=== PATIENT | male | born 1960 | race Caucasian/White ===

== ENCOUNTER 2022-11-13 14:42 | Inpatient (IN) | payer OTHER ==
[2022-11-13 15:10] VITALS: BMI 27.6
[2022-11-13] MEDS ORDERED: POLYETHYLENE GLYCOL (HEALTHYLAX) 3350 17 GM PACKET PO PRN (17:09)
[2022-11-13] MEDS ORDERED: IBUPROFEN 400 MG TABLET (FP) PO PRN (17:09)
[2022-11-13] MEDS ORDERED: IBUPROFEN 600 MG TABLET (FP) PO PRN (17:09)
[2022-11-13] MEDS ORDERED: NALOXONE HCL (KLOXXADO) 8 MG SPRAY NS PRN (17:09)
[2022-11-13] MEDS ORDERED: NICOTINE 10 MG CARTRIDGE (INHALER) IH PRN (17:09)
[2022-11-13] MEDS ORDERED: ACETAMINOPHEN 325 MG TABLET (FP) PO PRN (17:09)
[2022-11-13] MEDS ORDERED: MAG HYDROX/AL HYDROX/SIMETH 30 ML UNIT-DOSE CUP PO PRN (17:09)
[2022-11-13] MEDS ORDERED: BENZOCAINE/MENTHOL (CHLORASEPTIC ) LOZENGE MM PRN (17:09)
[2022-11-13] MEDS ORDERED: ONDANSETRON *ODT* 4 MG TABLET SL PRN (17:09)
[2022-11-13] MEDS ORDERED: MAGNESIUM HYDROX 2400MG/30ML ORAL SUSPENSION 30 ML CUP PO PRN (17:09)
[2022-11-13] MEDS ORDERED: BISMUTH SUBSALICYLATE 524 MG/30 ML PO PRN (17:09)
[2022-11-13] MEDS ORDERED: LOPERAMIDE HCL 2 MG CAPSULE PO PRN (17:09)
[2022-11-13] MEDS ORDERED: DICYCLOMINE HCL 10 MG CAPSULE PO PRN (17:09)
[2022-11-13] MEDS: PRENATAL VITAMINS W/ FOLIC ACID TABLET (FP) PO SCH (18:07)
[2022-11-13] MEDS: NICOTINE 14 MG/24 HOURS TOPICAL PATCH TD SCH (18:07)
[2022-11-13] MEDS ORDERED: PATIENT'S OWN MEDICATION (NON-FORMULARY) (Simvastatin [Zocor] 20 MG Tablet) PO SCH (22:00)
[2022-11-13] MEDS: ATORVASTATIN CA 10 MG TABLET (FP) PO SCH (22:27)
[2022-11-13] MEDS: DIVALPROEX SODIUM 250 MG TABLET E.C. PO SCH (22:27)
[2022-11-13] MEDS: MELATONIN 5 MG TABLETS PO SCH (22:27)
[2022-11-13] MEDS: THIAMINE HCL 100 MG TABLET (FP) PO SCH (22:28)
[2022-11-14] MEDS: DIVALPROEX SODIUM 250 MG TABLET E.C. PO SCH ×3 (06:01→22:05)
[2022-11-14] MEDS ORDERED: DEXTROAMPHETAMINE/AMPHETAMINE 10 MG CAP.ER.24H PO ONE (10:00)
[2022-11-14] MEDS ORDERED: cloNIDine HCL 0.1 MG TABLET PO PRN (10:16)
[2022-11-14] MEDS: PRENATAL VITAMINS W/ FOLIC ACID TABLET (FP) PO SCH (10:28)
[2022-11-14] MEDS: METHOCARBAMOL 500 MG TABLET PO PRN ×2 (10:29→22:06)
[2022-11-14] MEDS: hydrOXYzine PAMOATE 25 MG CAPSULE (FP) PO PRN ×2 (10:29→22:06)
[2022-11-14] MEDS ORDERED: methaDONE HCL 10 MG TABLET (FOR DETOX USE ONLY) PO ONE (10:30)
[2022-11-14] MEDS: NICOTINE 14 MG/24 HOURS TOPICAL PATCH TD SCH (10:30)
[2022-11-14 11:03] LABS: CALCIUM 8.9 mg/dL (8.5-10.1)
[2022-11-14 11:04] LABS: BLOOD UREA NITROGEN 7.7 mg/dL (7-18)
[2022-11-14 11:06] LABS: CREATININE 0.6 mg/dL (0.55-1.3)
[2022-11-14 11:08] LABS: BILIRUBIN,TOTAL 0.4 mg/dL (0.2-1); HEMATOCRIT 33.8 % (35.4-49); MCH 28.2 pg (25.7-33.7); MCHC 32.5 g/dl (32.0-35.9); MEAN CELL VOLUME 86.7 fl (80-96); MEAN PLT VOLUME 7.6 fl (7.5-11.1); PLATELET COUNT 254 10^3/uL (134-434); RDW 16.9 % (11.9-15.9); TOT PROT 6.5 g/dl (6.4-8.2); WHITE BLOOD COUNT 6.3 K/mm3 (4.0-10.0)
[2022-11-14] MEDS: ATORVASTATIN CA 10 MG TABLET (FP) PO SCH (22:06)
[2022-11-14] MEDS: THIAMINE HCL 100 MG TABLET (FP) PO SCH (22:06)
[2022-11-14] MEDS: MELATONIN 5 MG TABLETS PO SCH (22:06)
[2022-11-15] MEDS: DIVALPROEX SODIUM 250 MG TABLET E.C. PO SCH ×3 (05:24→22:17)
[2022-11-15] MEDS: METHOCARBAMOL 500 MG TABLET PO PRN (10:11)
[2022-11-15] MEDS: hydrOXYzine PAMOATE 25 MG CAPSULE (FP) PO PRN (10:11)
[2022-11-15] MEDS: NICOTINE 14 MG/24 HOURS TOPICAL PATCH TD SCH (10:12)
[2022-11-15] MEDS: PRENATAL VITAMINS W/ FOLIC ACID TABLET (FP) PO SCH (10:13)
[2022-11-15] MEDS: ATORVASTATIN CA 10 MG TABLET (FP) PO SCH (22:17)
[2022-11-15] MEDS: THIAMINE HCL 100 MG TABLET (FP) PO SCH (22:17)
[2022-11-15] MEDS: MELATONIN 5 MG TABLETS PO SCH (22:17)
[2022-11-16] MEDS: hydrOXYzine PAMOATE 25 MG CAPSULE (FP) PO PRN (05:32)
[2022-11-16] MEDS: METHOCARBAMOL 500 MG TABLET PO PRN (05:33)
[2022-11-16] MEDS: DIVALPROEX SODIUM 250 MG TABLET E.C. PO SCH ×3 (05:34→22:02)
[2022-11-16] MEDS ORDERED: methaDONE HCL 10 MG TABLET (FOR DETOX USE ONLY) PO ONE (10:00)
[2022-11-16] MEDS: NICOTINE 14 MG/24 HOURS TOPICAL PATCH TD SCH (10:12)
[2022-11-16] MEDS: PRENATAL VITAMINS W/ FOLIC ACID TABLET (FP) PO SCH (10:14)
[2022-11-16] MEDS: ATORVASTATIN CA 10 MG TABLET (FP) PO SCH (22:02)
[2022-11-16] MEDS: MELATONIN 5 MG TABLETS PO SCH (22:02)
[2022-11-16] MEDS: THIAMINE HCL 100 MG TABLET (FP) PO SCH (22:02)
[2022-11-17] MEDS: ACETAMINOPHEN 325 MG TABLET (FP) PO PRN ×2 (05:28→22:19)
[2022-11-17] MEDS: DIVALPROEX SODIUM 250 MG TABLET E.C. PO SCH ×3 (05:28→22:20)
[2022-11-17] MEDS: METHOCARBAMOL 500 MG TABLET PO PRN (10:01)
[2022-11-17] MEDS: NICOTINE 14 MG/24 HOURS TOPICAL PATCH TD SCH (10:02)
[2022-11-17] MEDS: PRENATAL VITAMINS W/ FOLIC ACID TABLET (FP) PO SCH (10:02)
[2022-11-17] MEDS: ATORVASTATIN CA 10 MG TABLET (FP) PO SCH (22:19)
[2022-11-17] MEDS: THIAMINE HCL 100 MG TABLET (FP) PO SCH (22:20)
[2022-11-17] MEDS: MELATONIN 5 MG TABLETS PO SCH (22:22)
[2022-11-18] MEDS: DIVALPROEX SODIUM 250 MG TABLET E.C. PO SCH ×3 (05:16→22:17)
[2022-11-18] MEDS ORDERED: methaDONE HCL 10 MG TABLET (FOR DETOX USE ONLY) PO ONE (10:00)
[2022-11-18] MEDS: PRENATAL VITAMINS W/ FOLIC ACID TABLET (FP) PO SCH (10:13)
[2022-11-18] MEDS: NICOTINE 14 MG/24 HOURS TOPICAL PATCH TD SCH (10:17)
[2022-11-18] MEDS: SERTRALINE HCL 50 MG TABLET (FP) PO SCH (11:57)
[2022-11-18] MEDS: DEXTROAMPHETAMINE/AMPHETAMINE 10 MG CAP.ER.24H PO SCH (15:32)
[2022-11-18] MEDS: MELATONIN 5 MG TABLETS PO SCH (22:17)
[2022-11-18] MEDS: ATORVASTATIN CA 10 MG TABLET (FP) PO SCH (22:17)
[2022-11-18] MEDS: THIAMINE HCL 100 MG TABLET (FP) PO SCH (22:17)
[2022-11-18] MEDS: METHOCARBAMOL 500 MG TABLET PO PRN (22:18)
[2022-11-18] MEDS: ACETAMINOPHEN 325 MG TABLET (FP) PO PRN (22:18)
[2022-11-19] MEDS: DIVALPROEX SODIUM 250 MG TABLET E.C. PO SCH ×3 (05:29→21:23)
[2022-11-19] MEDS: PRENATAL VITAMINS W/ FOLIC ACID TABLET (FP) PO SCH (09:52)
[2022-11-19] MEDS: SERTRALINE HCL 50 MG TABLET (FP) PO SCH (09:52)
[2022-11-19] MEDS: NICOTINE 14 MG/24 HOURS TOPICAL PATCH TD SCH (09:52)
[2022-11-19] MEDS: DEXTROAMPHETAMINE/AMPHETAMINE 10 MG CAP.ER.24H PO SCH (09:52)
[2022-11-19] MEDS: METHOCARBAMOL 500 MG TABLET PO PRN (09:53)
[2022-11-19] MEDS ORDERED: DEXTROAMPHETAMINE/AMPHETAMINE 10 MG CAP.ER.24H PO SCH (14:00)
[2022-11-19] MEDS ORDERED: TUBERCULIN PPD 5 TU/0.1ML VIAL ID ONE (19:56)
[2022-11-19] MEDS: ATORVASTATIN CA 10 MG TABLET (FP) PO SCH (21:23)
[2022-11-19] MEDS: THIAMINE HCL 100 MG TABLET (FP) PO SCH (21:24)
[2022-11-19] MEDS: MELATONIN 5 MG TABLETS PO SCH (21:24)
[2022-11-19] MEDS: ACETAMINOPHEN 325 MG TABLET (FP) PO PRN (21:24)
[2022-11-20] MEDS: hydrOXYzine PAMOATE 25 MG CAPSULE (FP) PO PRN (06:28)
[2022-11-20] MEDS: DIVALPROEX SODIUM 250 MG TABLET E.C. PO SCH ×3 (06:28→21:21)
[2022-11-20] MEDS: PRENATAL VITAMINS W/ FOLIC ACID TABLET (FP) PO SCH (09:55)
[2022-11-20] MEDS: SERTRALINE HCL 50 MG TABLET (FP) PO SCH (09:56)
[2022-11-20] MEDS: NICOTINE 14 MG/24 HOURS TOPICAL PATCH TD SCH (09:56)
[2022-11-20] MEDS: DEXTROAMPHETAMINE/AMPHETAMINE 10 MG CAP.ER.24H PO SCH (09:56)
[2022-11-20 11:39] LABS: HIV INTERPRETATION NEGATIVE (NEGATIVE)
[2022-11-20] MEDS ORDERED: PNEUMOC 20-VAL CONJ-DIP CRM/PF 0.5 ML SYRINGE IM ONE (12:00)
[2022-11-20] MEDS ORDERED: DEXTROAMPHETAMINE/AMPHETAMINE 10 MG CAP.ER.24H PO SCH (13:29)
[2022-11-20] MEDS: THIAMINE HCL 100 MG TABLET (FP) PO SCH (21:21)
[2022-11-20] MEDS: MELATONIN 5 MG TABLETS PO SCH (21:21)
[2022-11-20] MEDS: ATORVASTATIN CA 10 MG TABLET (FP) PO SCH (21:21)
[2022-11-20] MEDS: ACETAMINOPHEN 325 MG TABLET (FP) PO PRN (21:23)
[2022-11-21] MEDS ORDERED: DEXTROAMPHETAMINE/AMPHETAMINE 10 MG CAP.ER.24H PO SCH (06:00)
[2022-11-21] MEDS: DEXTROAMPHETAMINE/AMPHETAMINE 10 MG CAP.ER.24H PO SCH (06:25)
[2022-11-21] MEDS: DIVALPROEX SODIUM 250 MG TABLET E.C. PO SCH ×3 (06:25→21:09)
[2022-11-21] MEDS: SERTRALINE HCL 50 MG TABLET (FP) PO SCH (09:53)
[2022-11-21] MEDS: PRENATAL VITAMINS W/ FOLIC ACID TABLET (FP) PO SCH (09:53)
[2022-11-21] MEDS: NICOTINE 14 MG/24 HOURS TOPICAL PATCH TD SCH (09:54)
[2022-11-21] MEDS: ACETAMINOPHEN 325 MG TABLET (FP) PO PRN (14:30)
[2022-11-21] MEDS: ATORVASTATIN CA 10 MG TABLET (FP) PO SCH (21:09)
[2022-11-21] MEDS: THIAMINE HCL 100 MG TABLET (FP) PO SCH (21:09)
[2022-11-21] MEDS: MELATONIN 5 MG TABLETS PO SCH (21:09)
[2022-11-22] MEDS: DIVALPROEX SODIUM 250 MG TABLET E.C. PO SCH ×3 (06:14→21:16)
[2022-11-22] MEDS: DEXTROAMPHETAMINE/AMPHETAMINE 10 MG CAP.ER.24H PO SCH (06:14)
[2022-11-22] MEDS: NICOTINE 14 MG/24 HOURS TOPICAL PATCH TD SCH (09:56)
[2022-11-22] MEDS: PRENATAL VITAMINS W/ FOLIC ACID TABLET (FP) PO SCH (09:56)
[2022-11-22] MEDS: ACETAMINOPHEN 325 MG TABLET (FP) PO PRN (09:57)
[2022-11-22] MEDS: SERTRALINE HCL 50 MG TABLET (FP) PO SCH (09:57)
[2022-11-22] MEDS: MELATONIN 5 MG TABLETS PO SCH (21:16)
[2022-11-22] MEDS: THIAMINE HCL 100 MG TABLET (FP) PO SCH (21:16)
[2022-11-22] MEDS: ATORVASTATIN CA 10 MG TABLET (FP) PO SCH (21:17)
[2022-11-22] MEDS: hydrOXYzine PAMOATE 25 MG CAPSULE (FP) PO PRN (21:17)
[2022-11-23] MEDS: DIVALPROEX SODIUM 250 MG TABLET E.C. PO SCH ×3 (06:52→21:27)
[2022-11-23] MEDS: DEXTROAMPHETAMINE/AMPHETAMINE 10 MG CAP.ER.24H PO SCH (06:52)
[2022-11-23] MEDS: SERTRALINE HCL 50 MG TABLET (FP) PO SCH (09:36)
[2022-11-23] MEDS: PRENATAL VITAMINS W/ FOLIC ACID TABLET (FP) PO SCH (09:36)
[2022-11-23] MEDS: ACETAMINOPHEN 325 MG TABLET (FP) PO PRN (09:37)
[2022-11-23] MEDS: NICOTINE 14 MG/24 HOURS TOPICAL PATCH TD SCH (09:37)
[2022-11-23] MEDS: ATORVASTATIN CA 10 MG TABLET (FP) PO SCH (21:27)
[2022-11-23] MEDS: THIAMINE HCL 100 MG TABLET (FP) PO SCH (21:27)
[2022-11-23] MEDS: MELATONIN 5 MG TABLETS PO SCH (21:28)
[2022-11-24] MEDS: DEXTROAMPHETAMINE/AMPHETAMINE 10 MG CAP.ER.24H PO SCH (06:11)
[2022-11-24] MEDS: DIVALPROEX SODIUM 250 MG TABLET E.C. PO SCH ×3 (06:12→21:07)
[2022-11-24] MEDS: NICOTINE 14 MG/24 HOURS TOPICAL PATCH TD SCH (09:40)
[2022-11-24] MEDS: SERTRALINE HCL 50 MG TABLET (FP) PO SCH (09:40)
[2022-11-24] MEDS: PRENATAL VITAMINS W/ FOLIC ACID TABLET (FP) PO SCH (09:40)
[2022-11-24] MEDS: ATORVASTATIN CA 10 MG TABLET (FP) PO SCH (21:07)
[2022-11-24] MEDS: MELATONIN 5 MG TABLETS PO SCH (21:07)
[2022-11-24] MEDS: hydrOXYzine PAMOATE 25 MG CAPSULE (FP) PO PRN (21:08)
[2022-11-24] MEDS: THIAMINE HCL 100 MG TABLET (FP) PO SCH (21:08)
[2022-11-25] MEDS: DEXTROAMPHETAMINE/AMPHETAMINE 10 MG CAP.ER.24H PO SCH (06:07)
[2022-11-25] MEDS: DIVALPROEX SODIUM 250 MG TABLET E.C. PO SCH ×3 (06:07→21:08)
[2022-11-25] MEDS: NICOTINE 14 MG/24 HOURS TOPICAL PATCH TD SCH (09:36)
[2022-11-25] MEDS: PRENATAL VITAMINS W/ FOLIC ACID TABLET (FP) PO SCH (09:36)
[2022-11-25] MEDS: SERTRALINE HCL 50 MG TABLET (FP) PO SCH (09:36)
[2022-11-25] MEDS: ATORVASTATIN CA 10 MG TABLET (FP) PO SCH (21:07)
[2022-11-25] MEDS: MELATONIN 5 MG TABLETS PO SCH (21:07)
[2022-11-25] MEDS: THIAMINE HCL 100 MG TABLET (FP) PO SCH (21:07)
[2022-11-26] MEDS: DIVALPROEX SODIUM 250 MG TABLET E.C. PO SCH ×3 (05:39→21:06)
[2022-11-26] MEDS: DEXTROAMPHETAMINE/AMPHETAMINE 10 MG CAP.ER.24H PO SCH (05:39)
[2022-11-26] MEDS: PRENATAL VITAMINS W/ FOLIC ACID TABLET (FP) PO SCH (09:40)
[2022-11-26] MEDS: NICOTINE 14 MG/24 HOURS TOPICAL PATCH TD SCH (09:40)
[2022-11-26] MEDS: SERTRALINE HCL 50 MG TABLET (FP) PO SCH (09:41)
[2022-11-26] MEDS: ACETAMINOPHEN 325 MG TABLET (FP) PO PRN (09:41)
[2022-11-26] MEDS: MELATONIN 5 MG TABLETS PO SCH (21:05)
[2022-11-26] MEDS: THIAMINE HCL 100 MG TABLET (FP) PO SCH (21:06)
[2022-11-26] MEDS: ATORVASTATIN CA 10 MG TABLET (FP) PO SCH (21:06)
[2022-11-27] MEDS: DEXTROAMPHETAMINE/AMPHETAMINE 10 MG CAP.ER.24H PO SCH (06:06)
[2022-11-27] MEDS: DIVALPROEX SODIUM 250 MG TABLET E.C. PO SCH ×3 (06:06→21:07)
[2022-11-27] MEDS: NICOTINE 14 MG/24 HOURS TOPICAL PATCH TD SCH (09:41)
[2022-11-27] MEDS: PRENATAL VITAMINS W/ FOLIC ACID TABLET (FP) PO SCH (09:41)
[2022-11-27] MEDS: SERTRALINE HCL 50 MG TABLET (FP) PO SCH (09:42)
[2022-11-27] MEDS: ACETAMINOPHEN 325 MG TABLET (FP) PO PRN (13:54)
[2022-11-27] MEDS: THIAMINE HCL 100 MG TABLET (FP) PO SCH (21:07)
[2022-11-27] MEDS: MELATONIN 5 MG TABLETS PO SCH (21:07)
[2022-11-27] MEDS: ATORVASTATIN CA 10 MG TABLET (FP) PO SCH (21:07)
[2022-11-28] MEDS: DIVALPROEX SODIUM 250 MG TABLET E.C. PO SCH ×3 (06:16→21:14)
[2022-11-28] MEDS: DEXTROAMPHETAMINE/AMPHETAMINE 10 MG CAP.ER.24H PO SCH (06:17)
[2022-11-28] MEDS: NICOTINE 14 MG/24 HOURS TOPICAL PATCH TD SCH (09:36)
[2022-11-28] MEDS: PRENATAL VITAMINS W/ FOLIC ACID TABLET (FP) PO SCH (09:36)
[2022-11-28] MEDS: ACETAMINOPHEN 325 MG TABLET (FP) PO PRN (09:37)
[2022-11-28] MEDS: SERTRALINE HCL 50 MG TABLET (FP) PO SCH (09:37)
[2022-11-28] MEDS: ATORVASTATIN CA 10 MG TABLET (FP) PO SCH (21:14)
[2022-11-28] MEDS: MELATONIN 5 MG TABLETS PO SCH (21:14)
[2022-11-28] MEDS: THIAMINE HCL 100 MG TABLET (FP) PO SCH (21:15)
[2022-11-29] MEDS: DIVALPROEX SODIUM 250 MG TABLET E.C. PO SCH ×3 (06:32→21:17)
[2022-11-29] MEDS: DEXTROAMPHETAMINE/AMPHETAMINE 10 MG CAP.ER.24H PO SCH (06:32)
[2022-11-29] MEDS: PRENATAL VITAMINS W/ FOLIC ACID TABLET (FP) PO SCH (09:39)
[2022-11-29] MEDS: NICOTINE 14 MG/24 HOURS TOPICAL PATCH TD SCH (09:39)
[2022-11-29] MEDS: SERTRALINE HCL 50 MG TABLET (FP) PO SCH (09:39)
[2022-11-29] MEDS: ACETAMINOPHEN 325 MG TABLET (FP) PO PRN (09:40)
[2022-11-29] MEDS: ATORVASTATIN CA 10 MG TABLET (FP) PO SCH (21:16)
[2022-11-29] MEDS: MELATONIN 5 MG TABLETS PO SCH (21:16)
[2022-11-29] MEDS: hydrOXYzine PAMOATE 25 MG CAPSULE (FP) PO PRN (21:17)
[2022-11-29] MEDS: THIAMINE HCL 100 MG TABLET (FP) PO SCH (21:17)
[2022-11-30] MEDS: DEXTROAMPHETAMINE/AMPHETAMINE 10 MG CAP.ER.24H PO SCH (06:21)
[2022-11-30] MEDS: DIVALPROEX SODIUM 250 MG TABLET E.C. PO SCH ×3 (06:21→21:35)
[2022-11-30] MEDS: PRENATAL VITAMINS W/ FOLIC ACID TABLET (FP) PO SCH (09:47)
[2022-11-30] MEDS: SERTRALINE HCL 50 MG TABLET (FP) PO SCH (09:47)
[2022-11-30] MEDS: NICOTINE 14 MG/24 HOURS TOPICAL PATCH TD SCH (09:47)
[2022-11-30] MEDS: ACETAMINOPHEN 325 MG TABLET (FP) PO PRN (09:51)
[2022-11-30] MEDS: MELATONIN 5 MG TABLETS PO SCH (21:34)
[2022-11-30] MEDS: THIAMINE HCL 100 MG TABLET (FP) PO SCH (21:35)
[2022-11-30] MEDS: ATORVASTATIN CA 10 MG TABLET (FP) PO SCH (21:35)
[2022-12-01] MEDS: DEXTROAMPHETAMINE/AMPHETAMINE 10 MG CAP.ER.24H PO SCH (05:57)
[2022-12-01] MEDS: DIVALPROEX SODIUM 250 MG TABLET E.C. PO SCH ×3 (05:57→21:01)
[2022-12-01] MEDS: SERTRALINE HCL 50 MG TABLET (FP) PO SCH (09:39)
[2022-12-01] MEDS: PRENATAL VITAMINS W/ FOLIC ACID TABLET (FP) PO SCH (09:39)
[2022-12-01] MEDS: NICOTINE 14 MG/24 HOURS TOPICAL PATCH TD SCH (09:39)
[2022-12-01] MEDS: ATORVASTATIN CA 10 MG TABLET (FP) PO SCH (21:01)
[2022-12-01] MEDS: MELATONIN 5 MG TABLETS PO SCH (21:01)
[2022-12-01] MEDS: THIAMINE HCL 100 MG TABLET (FP) PO SCH (21:01)
[2022-12-01] MEDS: hydrOXYzine PAMOATE 25 MG CAPSULE (FP) PO PRN (21:02)
[2022-12-02] MEDS: DEXTROAMPHETAMINE/AMPHETAMINE 10 MG CAP.ER.24H PO SCH (06:08)
[2022-12-02] MEDS: DIVALPROEX SODIUM 250 MG TABLET E.C. PO SCH ×3 (06:08→21:05)
[2022-12-02] MEDS: SERTRALINE HCL 50 MG TABLET (FP) PO SCH (09:35)
[2022-12-02] MEDS: PRENATAL VITAMINS W/ FOLIC ACID TABLET (FP) PO SCH (09:35)
[2022-12-02] MEDS: NICOTINE 14 MG/24 HOURS TOPICAL PATCH TD SCH (09:35)
[2022-12-02] MEDS: ACETAMINOPHEN 325 MG TABLET (FP) PO PRN (09:36)
[2022-12-02] MEDS: THIAMINE HCL 100 MG TABLET (FP) PO SCH (21:05)
[2022-12-02] MEDS: hydrOXYzine PAMOATE 25 MG CAPSULE (FP) PO PRN (21:05)
[2022-12-02] MEDS: ATORVASTATIN CA 10 MG TABLET (FP) PO SCH (21:05)
[2022-12-02] MEDS: MELATONIN 5 MG TABLETS PO SCH (21:05)
[2022-12-03] MEDS: ACETAMINOPHEN 325 MG TABLET (FP) PO PRN (05:56)
[2022-12-03] MEDS: DIVALPROEX SODIUM 250 MG TABLET E.C. PO SCH (05:57)
[2022-12-03] MEDS: DEXTROAMPHETAMINE/AMPHETAMINE 10 MG CAP.ER.24H PO SCH (05:57)
[2022-12-03 06:44] VITALS: BP 131/90; PULSE 79; RESP 18; TEMP 98.1
[2022-12-03] MEDS: SERTRALINE HCL 50 MG TABLET (FP) PO SCH (09:26)
[2022-12-03] MEDS: PRENATAL VITAMINS W/ FOLIC ACID TABLET (FP) PO SCH (09:26)
[2022-12-03] MEDS: NICOTINE 14 MG/24 HOURS TOPICAL PATCH TD SCH (09:26)
== END 2022-12-03 12:20 | disposition home or self-care (01) | DRG 895 ==
LOC: YASAS 14:42 → Y3N 17:25 → Y5N 11-19 14:27
PROVIDERS: ADMIT Allergy & Immunology; ATTEND Surgery
PROC: HZ2ZZZZ Detoxification Services for Substance Abuse Treatment (ICD-10-PCS; 2022-11-13)
PROC: HZ42ZZZ Group Counseling for Substance Abuse Treatment, Cognitive-Behavioral (ICD-10-PCS; principal; 2022-11-14)
DX: F11.20 Opioid dependence, uncomplicated (principal); F17.210 Nicotine dependence, cigarettes, uncomplicated; F31.9 Bipolar disorder, unspecified; F60.9 Personality disorder, unspecified; F43.10 Post-traumatic stress disorder, unspecified; F42.9 Obsessive-compulsive disorder, unspecified; E78.5 Hyperlipidemia, unspecified; I10 Essential (primary) hypertension; I48.0 Paroxysmal atrial fibrillation; Z79.01 Long term (current) use of anticoagulants; M17.0 Bilateral primary osteoarthritis of knee; Z86.59 Personal history of other mental and behavioral disorders; Z99.89 Dependence on other enabling machines and devices
CPT/HCPCS: 36415; 80053; 80164; 85027; 86780; 87389; 90677; 93005; 93010; C9803-CS; U0003; U0005